=== PATIENT | male | born 1980 | race Caucasian/White ===

== ENCOUNTER 2020-11-16 08:06 | Outpatient (REF) | payer OTHER, SELFPAY | END 2020-11-16 08:07 | disposition home or self-care (01) | LOC: HO.LAB 08:06 | PROVIDERS: Visit Provider Internal Medicine | DX: Z20.822 Contact with and (suspected) exposure to COVID-19 (principal) | CPT/HCPCS: 36415; C9803; U0003; U0005 ==

== ENCOUNTER 2023-07-25 10:30 | Emergency (ER) | payer BC, SELFPAY ==
--- NOTE | ~2023-07-25 | XR_ITS ---
EXAMINATION: XR CHEST 2 VIEW CLINICAL INFORMATION: Blood tinged sputum COMPARISON: None TECHNIQUE: PA and lateral views of the chest obtained. FINDINGS: The lungs are clear. There are no pleural effusions. The cardiomediastinal silhouette is normal. XR/XR chest 2V IMPRESSION: No acute cardiopulmonary disease. If symptoms persist, suggest thoracic CT.
[2023-07-25 11:21] VITALS: BP 132/79; PULSE 73; RESP 18; TEMP 36.8; O2SAT 96; BMI 27.3
--- NOTE | 2023-07-25 11:21 | ED.GENADULT ---
HPI - General Adult General Chief complaint: Upper Respiratory Symptoms Stated complaint: Cough up blood/Lung pain Time Seen by Provider: 07/25/23 17:19 Source: patient and RN notes reviewed Mode of arrival: ambulatory Limitations: no limitations History of Present Illness HPI narrative: This is a 42-year-old male, with no known past medical history, presenting to the emergency department with complaints of cough with some flecks of blood in it since yesterday. He also reports some right-sided chest pain only with deep inspiration. He denies taking any medications at home to treat his current symptoms. He states that he was working with [employer] last week. He denies any fevers, chills, nausea, vomiting or diarrhea. Denies taking any medications at home to treat his current symptoms. No recent travel, surgeries, hospitalizations, history blood clots or cancer history. No other complaints or concerns at this time. MD complaint: Cough Onset (ago): day(s) Radiation: non-radiation Severity: moderate Pain Consistency: constant Relieving factors: none Exacerbating factors: none Associated symptoms: denies other symptoms Treatments prior to arrival: none Related Data Allergies Allergy/AdvReac Type Severity Reaction Status Date / Time No Known Allergies Allergy Unverified 05/07/20 15:46 Review of Systems Review of Systems: Yes all other systems are reviewed and are negative Constitutional: Constitutional: Reports as per [facility] Social History Social History Advance Directives: No Advance Directives Information Provided: Yes Physical Exam ED Vital Signs: Vital Signs - 24 hr 07/25/23 11:21 Temperature 98.2 F Pulse Rate 73 Respiratory Rate 18 Blood Pressure 132/79 Pulse Oximetry 96 Oxygen Delivery Method Room Air BMI result Body Mass Index 27.3 Const General: cooperative, comfortable and no acute distress Orientation/consciousness: patient oriented x3 Limitations: no limitations HENMT Head: Yes normal to inspection, Yes normocephalic and Yes atraumatic Ears: hearing grossly normal bilaterally and TM's normal bilaterally General nose exam: Normal external nose present Face and sinus: Yes normal facial exam Mouth: Normal oral and palatal mucosa present, oropharynx normal and moist mucous membranes Throat: Yes posterior oropharynx normal Eyes General: appearance normal, both eyes and all related structures Eyelids: Yes eyelids normal Conjunctivae: conjunctivae normal Sclerae: sclerae normal Pupils: Equal, round and reactive pupils present EOM: EOMs intact bilaterally Neck Neck: Yes normal visual inspection, Yes full ROM and Yes no lymphadenopathy Lymphatic: no lymphadenopathy noted Chest Chest palpation & inspection: normal inspection of the chest Resp Effort & Inspection: normal respiratory effort and able to speak in complete sentences Auscultation: clear to auscultation bilaterally, no crackles, no rales, no rhonchi and no wheezes Cardio Rate: regular rate Rhythm: regular rhythm Heart sounds: S1 normal heart sound present and S2 normal heart sound present GI Inspection: Yes normal to inspection Skin General skin exam: no rashes or lesions noted Trauma: no lacerations or abrasions Wounds: no wounds Neuro General: patient oriented x3 and moves all extremities Cranial nerves: Yes Equal, round and reactive pupils present Extrem General: Yes normal to inspection Right upper extremity: normal to inspection Left upper extremity: normal to inspection Right lower extremity: normal to inspection Left lower extremity: normal to inspection Course Course Course Narrative: This is a rapid medical exam: Additional HPI, ROS, PE not included below will be deferred to primary provider. Patient is a 42-year-old male presenting to the ED with complaint of cough, fever, lung pain. Reports blood-tinged sputum yesterday, had darker rust colored sputum this morning. Subjective fever last night. States pain is worse to right lower chest. Difficulty sleeping due to symptoms. Denies personal or family history of blood clots, denies recent surgery or trauma, denies recent travel. Symptoms began yesterday am. Plan: labs, CXR, viral swabs Medical Decision Making Medical Decision Making MDM Narrative: This is a 42-year-old male presenting to the emergency department for evaluation of cough with blood-tinged sputum since yesterday. On arrival, vital signs within normal limits. Patient is not hypoxic or tachypneic. Only endorsing some pleuritic chest pain. Patient was seen and evaluated at 5:30 p.m., he has been in the emergency room waiting room for the last 7 hours. He has been stable throughout his entire stay. Lungs are clear to auscultation bilaterally, patient with mild leukocytosis at 15.2, otherwise blood work unremarkable. Patient tested negative for COVID, flu, chest x-ray was negative. Patient is PERC negative. I discussed these findings with patient. I also discussed case with Dr. Raza. Patient can be discharged with close follow-up, given referral to nutrition club ambassador if symptoms persist. Given return precautions. Patient understands and agrees with plan. Patient stable for discharge. Differential Diagnosis Differential Diagnoses: The differential diagnosis associated with the presentation includes Upper respiratory infection, pneumonia, reactive airway disease Lab Data [facility] Lab Attestation statement: I reviewed the patient's lab results. See [facility] 07/25/23 11:36 07/25/23 11:36 Labs: Lab Results 07/25/23 Range/Units 11:36 WBC 15.2 H (4.8-10.8) X10*3/uL RBC 4.91 (4.60-5.80) X10*6/uL Hgb 14.4 (14.0-18.0) g/dl Hct 43.0 (42.0-52.0) % MCV 87.6 (80.0-98.0) fL MCH 29.3 (27.0-33.0) pg MCHC 33.5 (31.0-36.0) g/dl RDW 12.7 (11.0-16.0) % Plt Count 360 (160-400) X10*3/uL MPV 9.3 L (9.4-12.4) fL Immature Gran % (Auto) 0.3 (0.0-0.4) % Neut % (Auto) 64.0 (45-73) % Lymph % (Auto) 22.7 (20-40) % Crisp % (Auto) 10.5 (2-11) % Eos % (Auto) 1.8 (0-4) % Baso % (Auto) 0.7 (0-2) % Lymph # (Auto) 3.5 (1.2-4.9) X10*3/uL Crisp # (Auto) 1.6 H (0.1-1.2) X10*3/uL Eos # (Auto) 0.3 (0.0-0.4) X10*3/uL Baso # (Auto) 0.1 (0.0-0.2) X10*3/uL Abs Immat Gran (auto) 0.04 H (0.00-0.03) X10*3/uL Absolute Neuts (auto) 9.7 H (2.0-8.3) x10*3/uL Absolute Nucleated RBC 0.000 (0.0-0.012) X10*3/uL Nucleated RBC % (auto) 0.0 (0.0-0.2) /100WBC Smear Tech's Comments VERIFIED PT 12.4 (11.1-13.3) SEC INR 1.0 (0.9-1.1) Sodium 139 (135-145) mmol/L Potassium 4.0 (3.3-5.1) mmol/L Chloride 104 (96-108) mmol/L Carbon Dioxide 25 (22-29) mmol/L Anion Gap 14 (12-20) BUN 17 H (9-16) mg/dL Creatinine 1.15 (0.5-1.4) mg/dL Estim Creat Clear Calc 85.5 Estimated GFR > 60 Random Glucose 94 (60-115) mg/dL Calcium 9.5 (8.4-10.2) mg/dL COVID-19 (MASSIMO) Negative (Negative) COVID-19 Clin Com See Note Influenza Type A (IAIN) Negative (Negative) Influenza Type B (IAIN) Negative (Negative) Influenza A & B Note See Note Radiology Impression Discussion of test interpretation with radiology: I have reviewed the radiologist's reading. Radiologist Impression: EXAMINATION: XR CHEST 2 VIEW CLINICAL INFORMATION: Blood tinged sputum COMPARISON: None TECHNIQUE: PA and lateral views of the chest obtained. FINDINGS: The lungs are clear. There are no pleural effusions. The cardiomediastinal silhouette is normal. XR/XR chest 2V IMPRESSION: No acute cardiopulmonary disease. If symptoms persist, suggest thoracic CT. Dictated By: Mohamud Madison MD Discharge Plan Discharge Clinical Impression: Upper respiratory infection Patient Disposition: Home, Self-Care Instructions: Upper Respiratory Infection (ED) Additional Instructions: You tested negative for COVID, RSV, and flu. Your x-ray does not show a pneumonia. You likely have a viral infection causing you to have the symptoms. You may take ibuprofen or Tylenol as needed for pain. Please rest, drink plenty of fluids. You do not need antibiotics at this time. Please follow-up with your primary care physician. I am also giving your referral to nutrition club ambassador, if you continue to have the symptoms, you can call them for follow-up. If any new or worsening symptoms occur, please return for re-evaluation. Referrals: [facility] [Provider Group]
[2023-07-25 11:53] LABS: Basophils Absolute Auto 0.1 X10*3/uL (0.0-0.2); Basophils Percent Auto 0.7 % (0-2); Eosinophils Absolute Auto 0.3 X10*3/uL (0.0-0.4); Eosinophils Percent Auto 1.8 % (0-4); Hemoglobin 14.4 g/dl (14.0-18.0); Imm Gran Abs Auto 0.04 X10*3/uL (0.00-0.03); Imm Gran Pct Auto 0.3 % (0.0-0.4); Lymphocytes Absolute Auto 3.5 X10*3/uL (1.2-4.9); Lymphocytes Percent Auto 22.7 % (20-40); MANUAL DIFF FLAG SCAN; Mean Corpuscular HGB Conc 33.5 g/dl (31.0-36.0); Mean Corpuscular Hemoglobin 29.3 pg (27.0-33.0); Mean Corpuscular Volume 87.6 fL (80.0-98.0); Mean Platelet Volume 9.3 fL (9.4-12.4); Monocytes Absolute Auto 1.6 X10*3/uL (0.1-1.2); Monocytes Percent Auto 10.5 % (2-11); Neutrophils Absolute Auto 9.7 x10*3/uL (2.0-8.3); Platelet Count 360 X10*3/uL (160-400); Red Blood Count 4.91 X10*6/uL (4.60-5.80); Red Cell Distribution Width 12.7 % (11.0-16.0); SCAN SMEAR FLAG 1; White Blood Count 15.2 X10*3/uL (4.8-10.8)
[2023-07-25 12:04] LABS: Prothrombin Time 12.4 SEC (11.1-13.3)
[2023-07-25 12:07] LABS: Anion Gap 14 (12-20); Blood Urea Nitrogen 17 mg/dL (9-16); Calcium 9.5 mg/dL (8.4-10.2); Carbon Dioxide 25 mmol/L (22-29); Chloride 104 mmol/L (96-108); Creatinine Clr Calc Pharmacy 85.5; Estimated Glomerular Filt Rate > 60; Glucose Random 94 mg/dL (60-115); Sodium 139 mmol/L (135-145)
[2023-07-25 12:19] LABS: SLIDE REVIEW VERIFIED
[2023-07-25 12:28] LABS: COVID-19 Test Negative (Negative); IDNOW Serial# 08D9AD1C; IDNOW Serial# BCCEAD1C
[2023-07-25 12:29] LABS: Influenza A Negative (Negative); Influenza B2 Negative (Negative)
== END 2023-07-25 17:55 | disposition home or self-care (01) ==
PROVIDERS: Registered Nurse Emergency; Emergency Provider Student in an Organized Health Care Education/Training Program
DX: J06.9 Acute upper respiratory infection, unspecified (principal); R05.9 Cough, unspecified; Z11.52 Encounter for screening for COVID-19; Z20.822 Contact with and (suspected) exposure to COVID-19; Z79.899 Other long term (current) drug therapy
CPT/HCPCS: 36415; 71046; 80048; 85025; 85610; 87502; 87635; 99282; 99283

== ENCOUNTER 2023-07-31 15:26 | Outpatient (AMB) | payer BC, SELFPAY ==
[2023-07-31 15:30] VITALS: BP 140/76; PULSE 80; O2SAT 98; BMI 26.8
--- NOTE | 2023-07-31 15:30 | A.OFFPC_ITS ---
Vital Signs 07/31/23 15:30 Height 5 ft 10 in Weight 187 lb BMI 26.8 BP 140/76 H Blood Pressure Location Lt brachial Position Sitting Pulse 80 Pulse Source Pulse Oximeter Pulse Oximetry (%) 98 Oxygen Delivery Method Room Air Intake Visit Reasons: est care/ed lung pain coughing blood Electromechanisms Design Drafter Required: No Director Of First Impressions: Not Required per policy Accompanied by: Self / Same As Patient Allergies No Known Allergies Allergy (Verified 03/24/24 23:45) Medication List - Last Reconciled 03/24/24 by Heri Burton MD No Known Home Meds Tobacco use date assessed: 07/31/23 Dental Screening Dental Screen Date: 07/31/23 Did you have a dental visit in the last 12 months?: Yes Did you have a dental problem in the last 6 months where you did not have access to dental care?: No Was dental information given to patient?: Patient has dentist HPI est care/ed lung pain coughing blood HPI Details Patient comes in today for his HDF follow up visit and to establish care - is a new patient to the practice Patient states that he went to the ER last week for further evaluation when he started noticing some blood in his sputum since yesterday - he has been coughing on and off lately and also reports some right-sided chest pains with deep inspiration Recalls that he was working with black mold last week and is concerned that he may have inhaled them into his lungs and this is what is causing his current symptoms He denies having any pets at home and denies any recent travel States that he has not yet taken any medications, including OTC meds to help treat his symptoms He had chest x-rays and some tests done at the ER last week - his chest x-rays came back negative and he also tested negative for influenza, COVID and RSV CBC showed an elevated WBC count but no left shift He was advised that he likely has some viral URI and was advised symptomatic Tx with OTC cough/cold meds and to call or seek medical attention for any further progression or worsening of his symptoms He denies any fever or chills Denies any headaches or dizziness Denies any chest pains, no increased SOB No nausea/vomiting, no abdominal pain No change in bowel habits noted He denies any acute urinary symptoms PFS Medical History (Updated 02/13/24 @ 09:32 by Heri Burton MD) No pertinent past medical history Surgical History (Updated 02/13/24 @ 09:32 by Heri Burton MD) No pertinent past surgical history Family History (Updated 02/13/24 @ 09:34 by Heri Burton MD) Father Prostate cancer Social History Housing: House Patient Tobacco Use Status: Never used Tobacco e-Cigarette/Vaping Use: Currently Using Current occupational status: employed Cognitive needs: No Hearing needs: No Vision needs: No Questionnaire PHQ-9 Over the last 2 weeks, how often have you been bothered by any of the following problems? 1. Little interest or pleasure in doing things: not at all 2. Feeling down, depressed, or hopeless: not at all 3. Trouble falling or staying asleep, or sleeping too much: not at all 4. Feeling tired or having little energy: not at all 5. Poor appetite or overeating: not at all 6. Feeling bad about yourself - or that you are a failure or have let yourself or your family down: not at all 7. Trouble concentrating on things, such as reading the newspaper or watching television: not at all 8. Moving or speaking so slowly that other people could have noticed. Or the opposite - being so fidgety or restless that you have been moving around a lot more than usual: not at all 9. Thoughts that you would be better off or of hurting yourself in some way: not at all Total score: 0 Depression Screening Interpretation: Negative Depression Screening Done: Yes 37384 - PHQ-9 Billing: Yes Source: Developed by Drs. Leoncio Perez, Yesi Cook, Kiran Mcgregor and colleagues, with an educational delon from [employer]. Thrive Questionnaire Date Thrive assessed: 07/31/23 I am a: Patient What is your living situation today?: I have a steady place to live Within the past 12 months, did the food you bought not last and you didn't have the money to get more?: Never true Within the past 12 months, did you worry whether your food would run out before you got money to buy more?: Never true Do you have trouble paying for medicines?: No Do you have trouble getting transportation to medical appointments?: No Do you have trouble paying your heating and electricity bill?: No Do you have trouble taking care of your child, family member or friend?: No Do you have trouble with day-to-day activities such as bathing, preparing meals, shopping, managing finances, etc.?: No Are you currently unemployed and looking for a job?: No Are you interested in more education?: No Please select the resources that you would like help with: None Currently or been in a relationship where the following occur: no concerns reported AUDIT C Alcohol Use Questionnaire (AUDIT-C) 1. How often do you have a drink containing alcohol?: Never 3. How often do you have six or more drinks on one occasion?: Never Total Score: 0 Score Reviewed/Action Taken: Yes JONATHAN-7 AMB Questionnaire JONATHAN-7 Date JONATHAN - 7 assessed: 07/31/23 Feeling nervous, anxious, or on edge: 0 = Not at all Not being able to stop or control worryin = Not at all Worrying too much about different things: 0 = Not at all Trouble relaxin = Not at all Being so restless that it is hard to sit still: 0 = Not at all Becoming easily annoyed or irritable: 0 = Not at all Feeling afraid as if something awful might happen: 0 = Not at all Total JONATHAN-7 score (0-4 normal; 5-9 mild; 10-14 moderate; 15-21 severe): 0 Source: Developed by Drs. Leoncio Perez, Yesi Cook, Kiran Mcgregor and colleagues, with an educational delon from [employer]. Review of Systems Const Denies chills, Denies fatigue, Denies fever(s) and Denies headache(s) ENT Denies dysphagia, Denies dizziness, Denies otalgia, Denies headache(s), Denies neck pain, Denies odynophagia and Denies sore throat Card Reports chest pain (on and off, sharp, on the right side of the chest (wall)), Denies palpitations and Denies dyspnea Resp Denies chest congestion, Reports cough (on and off), Reports hemoptysis (at times), Denies dyspnea and Denies wheezing GI Denies abdominal pain, Denies constipation, Denies dysphagia, Denies heartburn, Denies diarrhea, Denies nausea, Denies odynophagia and Denies vomiting Denies dysuria, Denies nocturia and Denies urinary frequency Musc Denies back pain, Denies myalgias and Denies neck pain Skin/Breast Denies rash Neuro Denies dizziness and Denies headache(s) Endo Denies fatigue and Denies palpitations Aller/Immun Denies wheezing Physical exam (Primary Care) Vital Signs: Last Vital Signs Pulse 80 07/31/23 15:30 BP 140/76 H 07/31/23 15:30 Pulse Ox 98 07/31/23 15:30 Oxygen Delivery Method Room Air 07/31/23 15:30 BMI result Body Mass Index 26.8 Tobacco/Smoking Status: Tobacco use Status Tobacco use date assessed 07/31/23 07/31/23 15:32 Patient Tobacco Use Status Never used Tobacco 07/31/23 15:32 e-Cigarette/Vaping Use Currently Using 07/31/23 15:36 PHQ-9: PHQ-9 Score PHQ-9: Total score 0 02/13/24 09:26 Depression Screening Interpretation: Negative Thrive Assessment: Date of Thrive Assessment Date Thrive assessed 07/31/23 07/31/23 15:36 Currently or been in a relationship where the following occur: no concerns reported Const General: no acute distress and alert HENMT Ears: TM's normal bilaterally and EAC's normal Throat: Yes posterior oropharynx normal and Yes tonsils normal (no TP congestion) Neck Neck: Yes no lymphadenopathy and Yes supple Thyroid: Thyroid normal Resp Auscultation: clear to auscultation bilaterally, no rales and no wheezes Cardio Rate: regular rate Rhythm: regular rhythm Heart sounds: no murmurs GI Palpation (GI): Soft to palpation and nontender Auscultation: normal bowel sounds General: Yes no CVA tenderness Back/Spine/Pelvis Back: no CVA tenderness Thoracic/Lumbar Spine: No lumbar spinal tenderness Skin Rashes: no rashes Extrem General: Yes no clubbing, cyanosis or edema Assessment and Plan Assessment & Plan (1) Hemoptysis: Code(s): R04.2 - Hemoptysis Plan: Work ups done so far, including chest x-rays and serologic testing for COVID, influenza and RSV, have all been negative so far His initial CBC showed a slightly elevated WBC count Will send patient to the lab to recheck his CBC as well as a sed rate and metabolic profile for follow-up Advised that if his WBC count trends back to normal and the rest of his labs are unrevealing, he may not need any further workup unless his hemoptysis continues to progress Plan To return in 3 months for his annual physical examination Orders: Orders Erythrocyte Sedimentation Rate 07/31/23 R04.2 - Hemoptysis Complete Blood Count Auto Diff 07/31/23 R04.2 - Hemoptysis Comprehensive Met. Panel 07/31/23 R04.2 - Hemoptysis Coding Level of Care Code Est Pt Level 3 (20340) Diagnoses Hemoptysis R04.2
== END 2023-07-31 16:12 | disposition home or self-care (01) ==
PROVIDERS: Visit Provider Internal Medicine
DX: R04.2 Hemoptysis (principal)
CPT/HCPCS: 99499